=== PATIENT | female | born 1985 | race Caucasian/White ===

== ENCOUNTER 2017-02-25 21:23 | Observation (INO) | payer SELFPAY ==
[~2017-02-25] VITALS: Ht 170.2 cm; Wt 77.1 kg
[2017-02-25 22:20] LABS: Basophils # (auto) 0 uL; Basophils % (auto) 0.3 % (0.0-2.0); CONDITION Y; DEFINITIVE SEE PRINTOUT; Eosinophils # (auto) 0 uL; Eosinophils % (auto) 0.1 % (0.0-7.0); Hemoglobin 9.4 g/dL (12.2-16.2); Lymphocytes # (auto) 1.8 uL; Lymphocytes % (auto) 17.8 % (10.0-50.0); Mean Corpuscular Hgb Conc. 31.4 g/dL (32.0-36.0); Mean Corpuscular Volume 66.9 fL (80.0-100.0); Mean Platelet Volume 12.8 fL (7.4-10.4); Monocytes # (auto) 0.6 uL; Monocytes % (auto) 5.8 % (0.0-12.0); Neutrophils # (auto) 7.8 uL; Nucleated Red Blood Cells % 2.4 %; Platelet Count (auto) 245 10^3/uL (140-450); Red Cell Distribution Width 15.5 % (11.6-16.0); SUSPECT SEE PRINTOUT; White Blood Cell 10.3 10^3/uL (4.4-10.8)
[2017-02-25 22:36] LABS: B-Type Natriuretic Peptide 45.46 pg/mL (0-100)
[2017-02-25 22:38] LABS: Albumin 2.4 g/dL (3.4-5.0); Amylase 71 U/L (25-115); Anion Gap 11 (5-15); Aspartate Aminotransferase 22 U/L (15-37); BUN/Creatinine Ratio 14.8; Blood Urea Nitrogen 17 mg/dL (7-18); Calcium 8.4 mg/dL (8.5-10.1); Carbon Dioxide 23 mmol/L (21-32); Chloride 108 mmol/L (98-107); GFR African American 71 mL/min; GFR Non-African American 59 mL/min; Glucose 81 mg/dL (74-106); Sodium 142 mmol/L (136-145)
[2017-02-25 22:43] LABS: Alkaline Phosphatase 124 U/L (45-117); Bilirubin, Total 0.2 mg/dL (0.2-1.0); Temperature: 22.9 C (20.0-25.0); Total Protein 6.5 g/dL (6.4-8.2)
[2017-02-25 23:12] LABS: Urine Bilirubin Negative (Negative); Urine Blood Negative /uL (Negative); Urine Color Yellow (Yellow); Urine Glucose Normal (Normal); Urine Ketone TRACE (Negative); Urine Mucus FEW (None Seen); Urine Nitrite Negative (Negative); Urine RBC 2 /hpf (0 - 4); Urine Squamous Epithelial Cell MOD /hpf (<5); Urine Urobilinogen Normal (Negative)
[2017-02-25 23:14] LABS: Hypersegmented Neutrophils Present; Large Platelets FEW; Platelet Estimate Adequa
[2017-02-25 23:15] LABS: Microcytosis Marked
[2017-02-25 23:16] LABS: Anisocytosis Moderate
[2017-02-25 23:17] LABS: Hypochromia Moderate
[2017-02-26 05:48] LABS: INR 0.86 (0.9-1.15); Partial Thromboplastin Time 26.2 sec (22.64-33.71); Prothrombin Time 9.4 sec (9.37-12.3)
[2017-02-26 08:12] VITALS: BP 161/106
== END 2017-02-26 09:46 | disposition home or self-care (01) | DRG 781 ==
LOC: ER 21:27 → OVERFLOW 21:28 → ER 02-26 09:46
PROVIDERS: ADMIT Emergency Medicine; ATTEND Emergency Medicine
DX: O99.323 Drug use complicating pregnancy, third trimester (principal); F15.90 Other stimulant use, unspecified, uncomplicated; O12.03 Gestational edema, third trimester; O09.33 Supervision of pregnancy with insufficient antenatal care, third trimester; O99.333 Smoking (tobacco) complicating pregnancy, third trimester; Z3A.35 35 weeks gestation of pregnancy
CPT/HCPCS: 36415; 76801; 80053; 80307; 81001; 81025; 82150; 83690; 83880; 84484; 84702; 85025; 85379; 85610; 85730; 86592; 86703; 86762; 86850; 86900; 86901; 87340; 99285; G0378